=== PATIENT | male | born 1965 | race Caucasian/White ===

== ENCOUNTER 2017-06-13 06:18 | Day surgery (SDC) | payer MEDICARE, MEDICAID ==
[~2017-06-13] VITALS: Ht 188 cm; Wt 76.9 kg
[~2017-06-13 06:18] MED LIST: AMLO5TAB2 PO; ATOR40TA PO; CALC667C5 PO; CLON-529 PO; ESOM20CA PO; FOLI1TAB16 PO; FOLI1TAB34 PO; LABE200T PO; LOSA50TA3 PO; MUPI22OI30 TP
[2017-06-13 06:33] VITALS: BP 165/88
[2017-06-13] MEDS ORDERED: CINA30TA PO (06:44)
[2017-06-13] MEDS ORDERED: normal saline 1000ml 1,000 ML IV SCH (06:55)
[2017-06-13 07:15] LABS: ANION GAP 19 (8-16); BLOOD UREA NITROGEN 60 MG/DL (7-18); BUN/CREATININE RATIO 3.7 (5.4-32.0); CALCIUM 8.9 MG/DL (8.5-10.1); CHLORIDE 97 MMOL/L (99-107); GLUCOSE 92 MG/DL (70-104); PHOSPHORUS 7.3 MG/DL (2.3-4.5); POTASSIUM 5.2 MMOL/L (3.5-5.1); SODIUM 142 MMOL/L (135-145); TOTAL CARBON DIOXIDE 26.5 MMOL/L (24-32); eGFR 3 ML/MIN
[2017-06-13 08:02] LABS: BASOPHILS # (AUTO) 0.1 X10'3 (0-0.2); BASOPHILS % (AUTO) 0.6 % (0-1); EOSINOPHILS # (AUTO) 0.9 X10'3 (0-0.9); EOSINOPHILS % (AUTO) 7.6 % (0-6); HEMATOCRIT 37.5 % (42.0-52.0); HEMOGLOBIN 12.8 g/dl (14.0-17.9); LYMPHOCYTES # (AUTO) 1.3 X10'3 (1.1-4.8); LYMPHOCYTES % (AUTO) 11.5 % (21-51); MEAN CORPUSCULAR HEMOGLOBIN 32.7 PG (27.0-31.0); MONOCYTES # (AUTO) 1.1 X10'3 (0-0.9); MONOCYTES % (AUTO) 9.2 % (2-12); NEUTROPHILS # (AUTO) 8.2 X10'3 (1.8-7.7); NEUTROPHILS % (AUTO) 71.1 % (42-75); PLATELET COUNT 247 X10'3 (140-440); RED CELL DISTRIBUTION WIDTH 16.7 % (11.5-14.5); WHITE BLOOD COUNT 11.6 X10'3 (4.5-11.0)
[2017-06-13] MEDS ORDERED: sodium polystyrene sulfonate 15gm/60ml oral suspension PO ONE (08:10)
== END 2017-06-13 08:23 | disposition home or self-care (01) ==
LOC: SSTAY O 06:18
PROVIDERS: ATTEND Radiology Diagnostic Radiology
DX: T82.838A Hemorrhage due to vascular prosthetic devices, implants and grafts, initial encounter (principal); Y92.89 Other specified places as the place of occurrence of the external cause; Z53.8 Procedure and treatment not carried out for other reasons
CPT/HCPCS: 36415; 80069; 85025; J7030

== ENCOUNTER 2017-06-14 06:57 | Day surgery (SDC) | payer MEDICARE, MEDICAID ==
[~2017-06-14] VITALS: Ht 188 cm; Wt 81.6 kg
[2017-06-14] VITALS (7 sets, daily range): BP systolic 170–183; BP diastolic 75–81
[~2017-06-14 06:57] MED LIST changes: -AMLO5TAB2 PO; +CINA30TA PO; -CLON-529 PO; -LOSA50TA3 PO; -MUPI22OI30 TP
[2017-06-14] MEDS ORDERED: normal saline 1000ml 1,000 ML IV PRN (07:25)
[2017-06-14] MEDS ORDERED: tPA-cathflo 2 MG/2 ml IV flush ICATH ONE (07:30)
[2017-06-14] MEDS ORDERED: iohexol 300mg/ml 100ml inj. ONE (07:32)
[2017-06-14] MEDS ORDERED: LIDOcaine 1%/PF (10mg/ml) 5ml vial ONE (07:32)
[2017-06-14 07:33] LABS: BASOPHILS # (AUTO) 0.1 X10'3 (0-0.2); BASOPHILS % (AUTO) 0.9 % (0-1); EOSINOPHILS # (AUTO) 0.8 X10'3 (0-0.9); EOSINOPHILS % (AUTO) 7.6 % (0-6); HEMATOCRIT 35.8 % (42.0-52.0); LYMPHOCYTES # (AUTO) 1.6 X10'3 (1.1-4.8); LYMPHOCYTES % (AUTO) 15.7 % (21-51); MEAN CORPUSCULAR HEMOGLOBIN 32.3 PG (27.0-31.0); MEAN CORPUSCULAR HGB CONC 33.6 % (33.0-36.5); MEAN CORPUSCULAR VOLUME 96.2 FL (78-98); MEAN PLATELET VOLUME 7.2 FL (7.4-10.4); MONOCYTES # (AUTO) 1.1 X10'3 (0-0.9); MONOCYTES % (AUTO) 10.8 % (2-12); NEUTROPHILS # (AUTO) 6.7 X10'3 (1.8-7.7); PLATELET COUNT 239 X10'3 (140-440); RED BLOOD COUNT 3.72 X10'6 (4.70-6.10); RED CELL DISTRIBUTION WIDTH 16.5 % (11.5-14.5); WHITE BLOOD COUNT 10.3 X10'3 (4.5-11.0)
[2017-06-14 07:44] LABS: ALBUMIN 3.6 G/DL (3.4-5.0); ANION GAP 19 (8-16); BLOOD UREA NITROGEN 77 MG/DL (7-18); BUN/CREATININE RATIO 4.4 (5.4-32.0); CALCIUM 8.3 MG/DL (8.5-10.1); CHLORIDE 99 MMOL/L (99-107); CREATININE 17.53 MG/DL (0.60-1.10); GLUCOSE 107 MG/DL (70-104); POTASSIUM 5.5 MMOL/L (3.5-5.1); PROTHROMBIN TIME 9.9 SECONDS (9.0-12.0); SODIUM 142 MMOL/L (135-145); eGFR 3 ML/MIN
[2017-06-14] MEDS ORDERED: midazolam 2 mg/2 ml injection IV PRN (08:00)
[2017-06-14] MEDS ORDERED: LIDOcaine 1%/PF (10mg/ml) 5ml vial SQ ONE (08:00)
[2017-06-14] MEDS ORDERED: fentaNYL/PF 50MCG/1 ML 2ML syringe IV PRN (08:00)
[2017-06-14] MEDS ORDERED: heparin 1,000 UNITS/NS 500ml 500 ML ONE ×2 (08:01→09:27)
[2017-06-14] MEDS ORDERED: midazolam 2 mg/2 ml injection ONE ×2 (08:26→09:02)
[2017-06-14] MEDS ORDERED: fentaNYL/PF 50MCG/1 ML 2ML syringe ONE ×3 (08:27→09:34)
[2017-06-14] MEDS ORDERED: iohexol 300 MG/1 ML 50ml polymer ONE (09:29)
[2017-06-14] MEDS ORDERED: ondansetron/PF 4mg/2ml inj ONE (10:12)
[2017-06-14] MEDS ORDERED: ondansetron/PF 4mg/2ml inj IV ONE (10:20)
== END 2017-06-14 11:50 | disposition home or self-care (01) ==
LOC: SSTAY O 06:57
PROVIDERS: ATTEND Radiology Diagnostic Radiology
DX: T82.868A Thrombosis due to vascular prosthetic devices, implants and grafts, initial encounter (principal); I12.0 Hypertensive chronic kidney disease with stage 5 chronic kidney disease or end stage renal disease; N18.6 End stage renal disease; E78.5 Hyperlipidemia, unspecified; K21.9 Gastro-esophageal reflux disease without esophagitis; Z87.891 Personal history of nicotine dependence; Z79.899 Other long term (current) drug therapy; Z82.49 Family history of ischemic heart disease and other diseases of the circulatory system; Z99.2 Dependence on renal dialysis; Y83.2 Surgical operation with anastomosis, bypass or graft as the cause of abnormal reaction of the patient, or of later complication, without mention of misadventure at the time of the procedure; Y92.9 Unspecified place or not applicable
CPT/HCPCS: 36415; 36905; 80048; 85025; 85610; 99152; 99153; C1725; C1757; C1769; C1894; J1644; J2001; J2250; J2405; J2997; J3010; J7030; Q9967

== ENCOUNTER 2018-02-25 04:22 | Inpatient (IN) | payer MEDICARE, MEDICAID ==
[~2018-02-25] VITALS: Ht 185.4 cm; Wt 82.7 kg
[2018-02-25] VITALS (22 sets, daily range): BP systolic 138–204; BP diastolic 55–90
[~2018-02-25 04:22] MED LIST changes: -LABE200T PO; +LABE200T5 PO; +nitroGLYCERIN-Tridil 50MG/D5W 250 ML IV SCH
[2018-02-25 05:06] LABS: ABG BASE EXCESS 8.5 mmol/L (-2.0-3.0); ABG HCO3 33.5 mmol/L (22.0-26.0); ABG OXYGEN SATURATION 93.1 % (95-98); ABG PCO2 (T) 48.6 mmHg (35.0-48.0); ABG PH (T) 7.454 (7.350-7.450); ABG PO2 (T) 66.7 mmHg (83-108); FCOHb 2.1 % (0.5-1.5); FMetHb 0.3 % (0.3-1.12); FO2Hb 90.9 % (94-100); PATIENT TEMPERATURE 36.6; RESPIRATORY RATE 12 b/min; RESPIRATORY RATE (OBSERVED) 27 b/min; TOTAL HEMOGLOBIN 8.7 G/dl (14.0-18.0)
[2018-02-25] MEDS ORDERED: CLON-529 PO (05:20)
[2018-02-25] MEDS ORDERED: LOSA25TA96 PO (05:20)
[2018-02-25] MEDS ORDERED: ipratropium/albuterol 3ml nebule NEB PRN (05:30)
[2018-02-25] MEDS ORDERED: acetaminophen 325mg tablet PO PRN ×2 (05:30)
[2018-02-25] MEDS ORDERED: ondansetron/PF 4mg/2ml inj IV PRN (05:30)
[2018-02-25] MEDS ORDERED: acetaminophen 650mg rectal suppository RC PRN (05:30)
[2018-02-25] MEDS ORDERED: morphine 2 MG/ML inj. syringe IV PRN (05:30)
[2018-02-25] MEDS ORDERED: HYDROcodone/acetaminophen 5mg/325mg tablet PO PRN (05:30)
[2018-02-25 05:46] LABS: BASOPHILS % (AUTO) 0.1 % (0-1); EOSINOPHILS # (AUTO) 0.4 X10'3 (0-0.9); EOSINOPHILS % (AUTO) 1.6 % (0-6); HEMATOCRIT 25.7 % (42.0-52.0); HEMOGLOBIN 8.6 g/dl (14.0-17.9); LYMPHOCYTES # (AUTO) 0.8 X10'3 (1.1-4.8); LYMPHOCYTES % (AUTO) 3.1 % (21-51); MEAN CORPUSCULAR HEMOGLOBIN 30.9 PG (27.0-31.0); MEAN CORPUSCULAR HGB CONC 33.3 % (33.0-36.5); MEAN CORPUSCULAR VOLUME 92.8 FL (78-98); MEAN PLATELET VOLUME 8.2 FL (7.4-10.4); MONOCYTES # (AUTO) 0.8 X10'3 (0-0.9); MONOCYTES % (AUTO) 3.1 % (2-12); NEUTROPHILS # (AUTO) 23.2 X10'3 (1.8-7.7); NEUTROPHILS % (AUTO) 92.1 % (42-75); PLATELET COUNT 257 X10'3 (140-440); RED BLOOD COUNT 2.77 X10'6 (4.70-6.10); RED CELL DISTRIBUTION WIDTH 14.9 % (11.5-14.5)
[2018-02-25 05:48] LABS: WHITE BLOOD COUNT 25.2 X10'3 (4.5-11.0)
[2018-02-25 06:00] LABS: ALANINE AMINOTRANSFERASE 21 U/L (12-78); ALBUMIN 3.1 G/DL (3.4-5.0); ALBUMIN/GLOBULIN RATIO 0.9 (1.1-1.5); ALKALINE PHOSPHATASE 72 IU/L (46-116); ANION GAP 9 (8-16); ASPARTATE AMINO TRANSFERASE 11 U/L (10-37); BILIRUBIN,TOTAL 0.5 MG/DL (0.1-1.0); BLOOD UREA NITROGEN 27 MG/DL (7-18); BUN/CREATININE RATIO 3.2 (5.4-32.0); CALCIUM 8.3 MG/DL (8.5-10.1); CHLORIDE 96 MMOL/L (99-107); CREATININE 8.57 MG/DL (0.60-1.10); GLUCOSE 145 MG/DL (70-104); PHOSPHORUS 5.3 MG/DL (2.3-4.5); SODIUM 139 MMOL/L (135-145); TOTAL CARBON DIOXIDE 33.6 MMOL/L (24-32); TOTAL PROTEIN 6.6 G/DL (6.4-8.2); eGFR 7 ML/MIN
[2018-02-25 06:24] LABS: PLATELET ESTIMATE NORMAL; TOTAL CELLS COUNTED 100
[2018-02-25] MEDS: piperacillin-tazo 2.25gm/50ml 50 ML IV SCH ×3 (06:29→20:26)
[2018-02-25] MEDS: docusate sod 100mg capsule PO SCH ×2 (07:39→20:00)
[2018-02-25] MEDS: labetalol 100mg tablet PO SCH ×3 (07:39→20:27)
[2018-02-25] MEDS: pantoprazole 40mg Tablet.DR PO SCH (07:39)
[2018-02-25] MEDS: atorvastatin 20mg tablet PO SCH (07:39)
[2018-02-25] MEDS: losartan 50mg tablet PO SCH (07:39)
[2018-02-25] MEDS: heparin, porcine 5000 units/ml vial SQ SCH ×2 (07:40→20:00)
[2018-02-25] MEDS ORDERED: famotidine 20mg tablet PO SCH (08:00)
[2018-02-25] MEDS: cinacalcet 30mg tablet PO SCH (08:00)
[2018-02-25] MEDS ORDERED: cloNIDine 0.1 mg tablet PO SCH (08:00)
[2018-02-25] MEDS ORDERED: normal saline 1000ml 250 ML IV PRN (09:14)
[2018-02-25] MEDS ORDERED: vancomycin/NS 1 GM ADD-VANTAGE 250 ML IV PRN (09:15)
[2018-02-25] MEDS ORDERED: heparin 1,000 units/ml 10ml inj IV ONE (09:15)
[2018-02-25] MEDS ORDERED: LIDOcaine 1% (10mg/ml) 2ml vial SQ ONE (09:15)
[2018-02-25] MEDS ORDERED: epoetin 20,000 units/ml inj IV ONE (09:15)
[2018-02-25] MEDS ORDERED: vancomycin/NS 1 GM ADD-VANTAGE 250 ML IV ONE (09:30)
[2018-02-25] MEDS: nitroGLYCERIN-Tridil 50MG/D5W 250 ML IV PRN ×3 (10:12→22:59)
[2018-02-25] MEDS: folic acid 1mg tablet PO SCH (15:38)
[2018-02-25] MEDS: folic acid/vitamin B complex w/vitamin C 0.8mg tablet PO SCH (15:39)
[2018-02-25] MEDS: lactobacillus rhamnosus 10,000 MMU CELLS/CAPSULE PO SCH (20:26)
[2018-02-25] MEDS: cloNIDine 0.1 mg tablet PO SCH (20:27)
[2018-02-26] VITALS (17 sets, daily range): BP systolic 147–183; BP diastolic 61–86
[2018-02-26] MEDS: piperacillin-tazo 2.25gm/50ml 50 ML IV SCH ×3 (02:06→14:28)
[2018-02-26] MEDS ORDERED: VANCOMYCIN LEVEL IV SCH (03:00)
[2018-02-26 04:36] LABS: BASOPHILS # (AUTO) 0.1 X10'3 (0-0.2); BASOPHILS % (AUTO) 0.5 % (0-1); EOSINOPHILS # (AUTO) 0.6 X10'3 (0-0.9); EOSINOPHILS % (AUTO) 5.2 % (0-6); HEMOGLOBIN 7.1 g/dl (14.0-17.9); LYMPHOCYTES # (AUTO) 1.5 X10'3 (1.1-4.8); LYMPHOCYTES % (AUTO) 12.6 % (21-51); MEAN CORPUSCULAR HEMOGLOBIN 30.6 PG (27.0-31.0); MEAN CORPUSCULAR HGB CONC 33.3 % (33.0-36.5); MEAN CORPUSCULAR VOLUME 91.7 FL (78-98); MEAN PLATELET VOLUME 8.2 FL (7.4-10.4); MONOCYTES # (AUTO) 1.3 X10'3 (0-0.9); MONOCYTES % (AUTO) 10.9 % (2-12); NEUTROPHILS # (AUTO) 8.4 X10'3 (1.8-7.7); NEUTROPHILS % (AUTO) 70.8 % (42-75); PLATELET COUNT 215 X10'3 (140-440); RED BLOOD COUNT 2.31 X10'6 (4.70-6.10); RED CELL DISTRIBUTION WIDTH 14.6 % (11.5-14.5); WHITE BLOOD COUNT 11.9 X10'3 (4.5-11.0)
[2018-02-26 04:44] LABS: ALANINE AMINOTRANSFERASE 17 U/L (12-78); ALBUMIN 2.8 G/DL (3.4-5.0); ALBUMIN/GLOBULIN RATIO 0.9 (1.1-1.5); ALKALINE PHOSPHATASE 55 IU/L (46-116); ANION GAP 9 (8-16); ASPARTATE AMINO TRANSFERASE 9 U/L (10-37); BILIRUBIN,TOTAL 0.7 MG/DL (0.1-1.0); BLOOD UREA NITROGEN 19 MG/DL (7-18); CALCIUM 8.4 MG/DL (8.5-10.1); CHLORIDE 100 MMOL/L (99-107); CREATININE 6.36 MG/DL (0.60-1.10); GLUCOSE 99 MG/DL (70-104); MAGNESIUM 1.9 MG/DL (1.5-2.4); PHOSPHORUS 4.5 MG/DL (2.3-4.5); POTASSIUM 3.9 MMOL/L (3.5-5.1); SODIUM 139 MMOL/L (135-145); TOTAL CARBON DIOXIDE 30.5 MMOL/L (24-32); TOTAL PROTEIN 5.9 G/DL (6.4-8.2); VANCOMYCIN,RANDOM 8.9 UG/ML; eGFR 9 ML/MIN
[2018-02-26 04:51] LABS: HEMATOCRIT 21.2 % (42.0-52.0)
[2018-02-26] MEDS: losartan 50mg tablet PO SCH (08:01)
[2018-02-26] MEDS: heparin, porcine 5000 units/ml vial SQ SCH (08:01)
[2018-02-26] MEDS: cinacalcet 30mg tablet PO SCH (08:02)
[2018-02-26] MEDS: docusate sod 100mg capsule PO SCH (08:02)
[2018-02-26] MEDS: atorvastatin 20mg tablet PO SCH (08:02)
[2018-02-26] MEDS: folic acid/vitamin B complex w/vitamin C 0.8mg tablet PO SCH (08:02)
[2018-02-26] MEDS: lactobacillus rhamnosus 10,000 MMU CELLS/CAPSULE PO SCH (08:02)
[2018-02-26] MEDS: pantoprazole 40mg Tablet.DR PO SCH (08:02)
[2018-02-26] MEDS: folic acid 1mg tablet PO SCH (08:03)
[2018-02-26] MEDS: cloNIDine 0.1 mg tablet PO SCH (08:03)
[2018-02-26] MEDS: labetalol 100mg tablet PO SCH ×2 (08:14→14:27)
[2018-02-26] MEDS ORDERED: vancomycin/NS 1 GM ADD-VANTAGE 250 ML IV ONE (09:00)
[2018-02-26 11:02] LABS: FERRITIN 949 NG/ML (26-388)
[2018-02-26 11:28] LABS: % IRON SATURATION 31 % (11-46); IRON 48 UG/DL (53-167); TOTAL IRON BINDING CAPACITY 157 UG/DL (259-388)
[2018-02-26 12:06] LABS: HEMATOCRIT 23.6 % (42.0-52.0); HEMOGLOBIN 7.9 g/dl (14.0-17.9); MEAN CORPUSCULAR HEMOGLOBIN 31.2 PG (27.0-31.0); MEAN CORPUSCULAR HGB CONC 33.6 % (33.0-36.5); MEAN CORPUSCULAR VOLUME 92.8 FL (78-98); MEAN PLATELET VOLUME 8.1 FL (7.4-10.4); PLATELET COUNT 242 X10'3 (140-440); RED BLOOD COUNT 2.54 X10'6 (4.70-6.10); RED CELL DISTRIBUTION WIDTH 14.8 % (11.5-14.5); WHITE BLOOD COUNT 10.9 X10'3 (4.5-11.0)
[2018-02-26] MEDS ORDERED: CLON0.1T20 PO (15:30)
[2018-02-26] MEDS ORDERED: FOLI0.8T22 PO (15:30)
[2018-02-26] MEDS ORDERED: FOLI1TAB16 PO (15:30)
[2018-02-26] MEDS ORDERED: LABE100T5 PO (15:30)
[2018-02-26 16:46] LABS: OCCULT BLOOD STOOL NEGATIVE (Neg)
[2018-02-27] MEDS ORDERED: lactulose 20gm/30ml cup PO PRN (05:30)
== END 2018-02-26 16:30 | disposition home or self-care (01) | DRG 871 ==
LOC: ER 04:22 → ED HOLD 05:30 → CICU 2S 07:19
PROVIDERS: ATTEND Internal Medicine Critical Care Medicine
PROC: 5A09357 Assistance with Respiratory Ventilation, Less than 24 Consecutive Hours, Continuous Positive Airway Pressure (ICD-10-PCS; principal; 2018-02-25)
PROC: 5A1D70Z Performance of Urinary Filtration, Intermittent, Less than 6 Hours Per Day (ICD-10-PCS; 2018-02-25)
DX: A41.9 Sepsis, unspecified organism (principal); I50.33 Acute on chronic diastolic (congestive) heart failure; N18.6 End stage renal disease; J18.1 Lobar pneumonia, unspecified organism; J96.01 Acute respiratory failure with hypoxia; J96.02 Acute respiratory failure with hypercapnia; I13.2 Hypertensive heart and chronic kidney disease with heart failure and with stage 5 chronic kidney disease, or end stage renal disease; I16.1 Hypertensive emergency; J44.0 Chronic obstructive pulmonary disease with (acute) lower respiratory infection; D64.9 Anemia, unspecified; E78.5 Hyperlipidemia, unspecified; K21.9 Gastro-esophageal reflux disease without esophagitis; Z82.49 Family history of ischemic heart disease and other diseases of the circulatory system; Z99.2 Dependence on renal dialysis; Z79.899 Other long term (current) drug therapy
CPT/HCPCS: 36415; 36600; 71045; 80053; 80202; 82272; 82728; 82803; 82948; 83540; 83550; 83605; 83735; 83880; 84100; 84145; 84484; 85018; 85025; 85027; 86885; 86900; 86901; 87040; 87070; 93005; 93306; 94660; 94760; 96365; 97161; 99285; G0257; G0378; J0885; J1644; J2543; J3370; J3490

== ENCOUNTER 2018-04-24 07:27 | Day surgery (SDC) | payer MEDICARE, MEDICAID ==
[2018-04-24] VITALS (7 sets, daily range): BP systolic 197–214; BP diastolic 84–144
[~2018-04-24] VITALS: Ht 188 cm; Wt 79.0 kg
[~2018-04-24 07:27] MED LIST changes: -CALC667C5 PO; +CLON0.1T20 PO; +FOLI0.8T22 PO; -FOLI1TAB34 PO; +LABE100T5 PO; -LABE200T5 PO; +LOSA25TA96 PO; -nitroGLYCERIN-Tridil 50MG/D5W 250 ML IV SCH
[2018-04-24] MEDS ORDERED: normal saline 1000ml 1,000 ML IV SCH ×2 (07:50→09:03)
[2018-04-24] MEDS ORDERED: FOLI1TAB16 PO (08:19)
[2018-04-24] MEDS ORDERED: FOLI0.8T7 PO (08:19)
[2018-04-24] MEDS ORDERED: LABE100T5 PO (08:19)
[2018-04-24] MEDS ORDERED: OMEP20CA10 PO (08:21)
[2018-04-24] MEDS ORDERED: CLON-527 PO (08:21)
[2018-04-24] MEDS ORDERED: NIFE60TA18 PO (08:21)
[2018-04-24 08:33] LABS: ALBUMIN 3.8 G/DL (3.4-5.0); ANION GAP 12 (8-16); BLOOD UREA NITROGEN 25 MG/DL (7-18); BUN/CREATININE RATIO 3.3 (5.4-32.0); CALCIUM 8.9 MG/DL (8.5-10.1); CHLORIDE 99 MMOL/L (99-107); CREATININE 7.69 MG/DL (0.60-1.10); GLUCOSE 90 MG/DL (70-104); POTASSIUM 4.4 MMOL/L (3.5-5.1); SODIUM 141 MMOL/L (135-145); TOTAL CARBON DIOXIDE 30.3 MMOL/L (24-32); eGFR 7 ML/MIN
[2018-04-24 08:56] LABS: BASOPHILS # (AUTO) 0.1 X10'3 (0-0.2); BASOPHILS % (AUTO) 0.8 % (0-1); EOSINOPHILS % (AUTO) 12.4 % (0-6); HEMATOCRIT 39.3 % (42.0-52.0); HEMOGLOBIN 12.7 g/dl (14.0-17.9); LYMPHOCYTES # (AUTO) 1.2 X10'3 (1.1-4.8); LYMPHOCYTES % (AUTO) 14.8 % (21-51); MEAN CORPUSCULAR HEMOGLOBIN 29.6 PG (27.0-31.0); MEAN CORPUSCULAR HGB CONC 32.3 % (33.0-36.5); MEAN CORPUSCULAR VOLUME 91.8 FL (78-98); MEAN PLATELET VOLUME 8.8 FL (7.4-10.4); MONOCYTES # (AUTO) 0.8 X10'3 (0-0.9); MONOCYTES % (AUTO) 9.6 % (2-12); NEUTROPHILS % (AUTO) 62.4 % (42-75); PLATELET COUNT 192 X10'3 (140-440); RED BLOOD COUNT 4.29 X10'6 (4.70-6.10); RED CELL DISTRIBUTION WIDTH 16.9 % (11.5-14.5); WHITE BLOOD COUNT 7.9 X10'3 (4.5-11.0)
[2018-04-24 09:00] LABS: INR 1.1 INR; PROTHROMBIN TIME 10.4 SECONDS (9.0-12.0)
[2018-04-24] MEDS ORDERED: heparin 1,000 UNITS/NS 500ml 500 ML ICATH ONE (09:05)
[2018-04-24] MEDS ORDERED: fentaNYL/PF 50MCG/1 ML 2ML syringe IV PRN (09:05)
[2018-04-24] MEDS ORDERED: LIDOcaine 1%/PF 5ML 10 MG/ML VIAL SQ ONE (09:05)
[2018-04-24] MEDS ORDERED: midazolam 2 mg/2 ml injection IV PRN (09:05)
[2018-04-24] MEDS ORDERED: LIDOcaine 1%/PF 5ML 10 MG/ML VIAL ONE (09:12)
[2018-04-24] MEDS ORDERED: iohexol 300mg/ml 100ml inj. ONE (09:12)
[2018-04-24] MEDS ORDERED: midazolam 2 mg/2 ml injection ONE ×2 (09:35→09:58)
[2018-04-24] MEDS ORDERED: fentaNYL/PF 50MCG/1 ML 2ML syringe ONE ×2 (09:36→09:58)
[2018-04-24] MEDS ORDERED: heparin 1,000 UNITS/NS 500ml 500 ML ONE (09:36)
[2018-04-24] MEDS ORDERED: hydrALAZINE 20mg/ml inj. IV ONE ×2 (10:00→10:15)
== END 2018-04-24 11:23 | disposition home or self-care (01) ==
LOC: SSTAY O 07:27
PROVIDERS: ATTEND Radiology Vascular & Interventional Radiology
DX: T82.858A Stenosis of other vascular prosthetic devices, implants and grafts, initial encounter (principal); Y83.8 Other surgical procedures as the cause of abnormal reaction of the patient, or of later complication, without mention of misadventure at the time of the procedure; Y92.89 Other specified places as the place of occurrence of the external cause; I12.0 Hypertensive chronic kidney disease with stage 5 chronic kidney disease or end stage renal disease; N18.6 End stage renal disease; E78.5 Hyperlipidemia, unspecified; K21.9 Gastro-esophageal reflux disease without esophagitis; F12.90 Cannabis use, unspecified, uncomplicated; G62.89 Other specified polyneuropathies; Z87.2 Personal history of diseases of the skin and subcutaneous tissue; Z99.2 Dependence on renal dialysis; Z86.69 Personal history of other diseases of the nervous system and sense organs; Z87.891 Personal history of nicotine dependence; Z98.890 Other specified postprocedural states; Z79.899 Other long term (current) drug therapy; Z82.49 Family history of ischemic heart disease and other diseases of the circulatory system
CPT/HCPCS: 36415; 36901; 80048; 85025; 85610; 99152; 99153; J0360; J1644; J2001; J2250; J3010; J7030; Q9967; C1769; C1894

== ENCOUNTER 2018-08-12 09:04 | Day surgery (SDC) | payer MEDICARE, MEDICAID ==
[2018-08-12] VITALS (7 sets, daily range): BP systolic 165–200; BP diastolic 74–108
[~2018-08-12] VITALS: Ht 188 cm; Wt 81.1 kg
[~2018-08-12 09:04] MED LIST changes: +CLON-527 PO; -CLON0.1T20 PO; -ESOM20CA PO; -FOLI0.8T22 PO; +FOLI0.8T7 PO; +NIFE60TA18 PO; +OMEP20CA10 PO
[2018-08-12] MEDS ORDERED: normal saline 1000ml 1,000 ML IV SCH (09:25)
[2018-08-12] MEDS ORDERED: CLON0.3T PO (09:29)
[2018-08-12] MEDS ORDERED: iohexol 300mg/ml 100ml inj. ONE (09:44)
[2018-08-12] MEDS ORDERED: LIDOcaine 1%/PF 5ML 10 MG/ML VIAL ONE ×2 (09:44→13:22)
[2018-08-12 09:57] LABS: BASOPHILS # (AUTO) 0.1 X10'3 (0-0.2); BASOPHILS % (AUTO) 1.4 % (0-1); EOSINOPHILS % (AUTO) 10.6 % (0-6); HEMATOCRIT 34.8 % (42.0-52.0); HEMOGLOBIN 11.3 g/dl (14.0-17.9); LYMPHOCYTES # (AUTO) 0.9 X10'3 (1.1-4.8); LYMPHOCYTES % (AUTO) 9.7 % (21-51); MEAN CORPUSCULAR HEMOGLOBIN 28.5 PG (27.0-31.0); MEAN CORPUSCULAR HGB CONC 32.5 g/dL (33.0-36.5); MEAN CORPUSCULAR VOLUME 87.8 FL (78-98); MEAN PLATELET VOLUME 7.9 FL (7.4-10.4); MONOCYTES # (AUTO) 0.6 X10'3 (0-0.9); MONOCYTES % (AUTO) 6.8 % (2-12); NEUTROPHILS # (AUTO) 6.6 X10'3 (1.8-7.7); NEUTROPHILS % (AUTO) 71.5 % (42-75); PLATELET COUNT 227 X10'3 (140-440); RED BLOOD COUNT 3.96 X10'6 (4.70-6.10); RED CELL DISTRIBUTION WIDTH 18.1 % (11.5-14.5); WHITE BLOOD COUNT 9.2 X10'3 (4.5-11.0)
[2018-08-12] MEDS ORDERED: heparin 1,000 UNITS/NS 500ml 500 ML ICATH ONE (10:05)
[2018-08-12] MEDS ORDERED: heparin 1,000 units/ml 10ml inj ICATH ONE (10:05)
[2018-08-12] MEDS ORDERED: LIDOcaine 1%/PF 5ML 10 MG/ML VIAL SQ ONE (10:05)
[2018-08-12] MEDS ORDERED: midazolam 2 mg/2 ml injection IV PRN (10:05)
[2018-08-12] MEDS ORDERED: fentaNYL/PF 50MCG/1 ML 2ML syringe IV PRN (10:05)
[2018-08-12 10:09] LABS: ALBUMIN 3.9 G/DL (3.4-5.0); ANION GAP 10 (8-16); BLOOD UREA NITROGEN 68 MG/DL (7-18); BUN/CREATININE RATIO 4.8 (5.4-32.0); CALCIUM 8.7 MG/DL (8.5-10.1); CHLORIDE 101 MMOL/L (99-107); CREATININE 14.13 MG/DL (0.60-1.10); GLUCOSE 99 MG/DL (70-104); SODIUM 139 MMOL/L (135-145); TOTAL CARBON DIOXIDE 27.6 MMOL/L (24-32); eGFR 4 ML/MIN
[2018-08-12 10:10] LABS: POTASSIUM 6.8 MMOL/L (3.5-5.1)
[2018-08-12] MEDS ORDERED: midazolam 2 mg/2 ml injection ONE ×2 (10:11→13:06)
[2018-08-12] MEDS ORDERED: fentaNYL/PF 50MCG/1 ML 2ML syringe ONE ×2 (10:12→13:06)
[2018-08-12] MEDS ORDERED: heparin 1,000 UNITS/NS 500ml 500 ML ONE (10:12)
[2018-08-12] MEDS ORDERED: sodium bicarbonate (8.4%) inj. 50 MEQ in normal saline 1000ml 1,000 ML IV SCH (10:25)
[2018-08-12] MEDS ORDERED: calcium chloride 100 MG/1 ML inj IV ONE (10:25)
[2018-08-12] MEDS ORDERED: albuterol 2.5 MG/3 ML nebule CONTNEB PRN (10:25)
[2018-08-12] MEDS ORDERED: dextrose 50%-water 50ml dispensing syringe IV ONE (10:25)
[2018-08-12] MEDS ORDERED: insulin regular, human 10 units/0.1 ml syringe IV ONE (10:25)
[2018-08-12] MEDS ORDERED: calcium chloride inj. 1,000 MG in normal saline 100ml IV soln 90 ML IV ONE (10:35)
[2018-08-12] MEDS ORDERED: sodium bicarbonate (8.4%) 1 mEq/ml syringe IV ONE (11:05)
--- NOTE | 2018-08-12 11:40 | NUR ---
waiting for RT to administer neb treatment as ordered. Medications administered by RN as ordered.
--- NOTE | 2018-08-12 11:51 | NUR ---
paged RT, to come administer medications
[2018-08-12] MEDS ORDERED: tPA-cathflo 2 MG/2 ml IV flush ONE (12:38)
[2018-08-12] MEDS ORDERED: heparin 1,000unit/ml 10ml vial 10 ML ONE (13:22)
[2018-08-12] MEDS ORDERED: ondansetron/PF 4mg/2ml inj ONE (14:12)
[2018-08-12] MEDS ORDERED: labetalol 100mg tablet PO SCH (14:57)
[2018-08-12] MEDS ORDERED: NIFEdipine XL 30mg tablet PO SCH (14:58)
== END 2018-08-12 15:25 | disposition home or self-care (01) ==
LOC: SSTAY O 09:04
PROVIDERS: ATTEND Radiology Diagnostic Radiology
DX: T82.868A Thrombosis due to vascular prosthetic devices, implants and grafts, initial encounter (principal); I12.0 Hypertensive chronic kidney disease with stage 5 chronic kidney disease or end stage renal disease; N18.6 End stage renal disease; Z79.899 Other long term (current) drug therapy; Y83.8 Other surgical procedures as the cause of abnormal reaction of the patient, or of later complication, without mention of misadventure at the time of the procedure; Z82.49 Family history of ischemic heart disease and other diseases of the circulatory system
CPT/HCPCS: 36415; 36558; 36901; 76937; 77001; 80048; 85025; 94640; 94760; 99152; 99153; J1644; J1815; J2001; J2250; J2405; J2997; J3010; J7030; Q9967; A9270; C1750; C1769; C1894

== ENCOUNTER 2018-10-16 06:30 | Day surgery (SDC) | payer MEDICARE, MEDICAID ==
[~2018-10-16] VITALS: Ht 188 cm; Wt 76.5 kg
[~2018-10-16 06:30] MED LIST changes: -CLON-527 PO; +CLON0.3T PO; -LOSA25TA96 PO; -OMEP20CA10 PO; +OMEP20CA11 PO
[2018-10-16] MEDS ORDERED: normal saline 1000ml 1,000 ML IV SCH (06:55)
[2018-10-16] MEDS ORDERED: LOSA100T57 PO (07:19)
[2018-10-16 07:22] VITALS: BP 173/67
[2018-10-16 07:27] LABS: BASOPHILS # (AUTO) 0.1 X10'3 (0-0.2); BASOPHILS % (AUTO) 1.1 % (0-1); EOSINOPHILS # (AUTO) 0.9 X10'3 (0-0.9); EOSINOPHILS % (AUTO) 12.1 % (0-6); HEMATOCRIT 30.1 % (42.0-52.0); LYMPHOCYTES % (AUTO) 12.6 % (21-51); MEAN CORPUSCULAR HGB CONC 33.4 g/dL (33.0-36.5); MEAN CORPUSCULAR VOLUME 86.8 FL (78-98); MEAN PLATELET VOLUME 8.6 FL (7.4-10.4); MONOCYTES # (AUTO) 0.8 X10'3 (0-0.9); NEUTROPHILS % (AUTO) 64.2 % (42-75); PLATELET COUNT 218 X10'3 (140-440); RED BLOOD COUNT 3.46 X10'6 (4.70-6.10); RED CELL DISTRIBUTION WIDTH 16.3 % (11.5-14.5); WHITE BLOOD COUNT 7.8 X10'3 (4.5-11.0)
[2018-10-16 07:43] LABS: ALBUMIN 3.5 G/DL (3.4-5.0); ANION GAP 6 (8-16); BLOOD UREA NITROGEN 23 MG/DL (7-18); BUN/CREATININE RATIO 3.6 (5.4-32.0); CALCIUM 9.1 MG/DL (8.5-10.1); CHLORIDE 103 MMOL/L (99-107); CREATININE 6.47 MG/DL (0.60-1.10); GLUCOSE 105 MG/DL (70-104); POTASSIUM 4.1 MMOL/L (3.5-5.1); SODIUM 140 MMOL/L (135-145); TOTAL CARBON DIOXIDE 31.5 MMOL/L (24-32); eGFR 9 ML/MIN
[2018-10-16] MEDS ORDERED: midazolam 2 mg/2 ml injection IV PRN (08:10)
[2018-10-16] MEDS ORDERED: fentaNYL/PF 50MCG/1 ML 2ML syringe IV PRN (08:10)
[2018-10-16] MEDS ORDERED: iohexol 300mg/ml 100ml inj. ONE (08:12)
[2018-10-16] MEDS ORDERED: LIDOcaine 1%/PF 5ML 10 MG/ML VIAL ONE (08:12)
[2018-10-16] MEDS ORDERED: heparin 1,000 UNITS/NS 500ml 500 ML ONE (08:12)
[2018-10-16] MEDS ORDERED: fentaNYL/PF 50MCG/1 ML 2ML syringe ONE (08:15)
[2018-10-16] MEDS ORDERED: midazolam 2 mg/2 ml injection ONE (08:15)
[2018-10-16 09:25] VITALS: BP 197/80
[2018-10-16 09:40] VITALS: BP 198/93
[2018-10-16 09:55] VITALS: BP 206/81
[2018-10-16 10:10] VITALS: BP 182/81
[2018-10-16 10:28] VITALS: BP 186/70
== END 2018-10-16 10:35 | disposition home or self-care (01) ==
LOC: SSTAY O 06:30
PROVIDERS: ATTEND Radiology Diagnostic Radiology
DX: Z03.89 Encounter for observation for other suspected diseases and conditions ruled out (principal); E11.22 Type 2 diabetes mellitus with diabetic chronic kidney disease; N18.9 Chronic kidney disease, unspecified; Z96.649 Presence of unspecified artificial hip joint; Z79.899 Other long term (current) drug therapy; Z82.49 Family history of ischemic heart disease and other diseases of the circulatory system
CPT/HCPCS: 36415; 36901; 80048; 85025; 85610; 99152; 99153; C1769; C1894; J1644; J2001; J2250; J3010; Q9967

== ENCOUNTER 2022-09-07 06:51 | Day surgery (SDC) | payer MEDICARE, MEDICAID ==
[~2022-09-07] VITALS: Ht 188 cm; Wt 69.4 kg
[~2022-09-07 06:51] MED LIST changes: -CINA30TA PO; -FOLI1TAB16 PO; +FOLI1TAB27 PO; -LABE100T5 PO; +LOSA100T58 PO; -OMEP20CA11 PO; +OMEP20CA15 PO
[2022-09-07] MEDS ORDERED: normal saline 1000ml 1,000 ML IV PRN (07:10)
[2022-09-07 07:40] VITALS: BP 154/73
[2022-09-07] MEDS ORDERED: PHO667C PO (07:48)
[2022-09-07] MEDS ORDERED: LABE100T8 PO (07:48)
[2022-09-07 07:53] LABS: BASOPHILS # (AUTO) 0.1 X10'3 (0-0.2); BASOPHILS % (AUTO) 0.9 % (0-1); EOSINOPHILS # (AUTO) 0.5 X10'3 (0-0.9); EOSINOPHILS % (AUTO) 4.1 % (0-6); HEMATOCRIT 39.8 % (42.0-52.0); HEMOGLOBIN 13.1 g/dl (14.0-17.9); LYMPHOCYTES # (AUTO) 1.2 X10'3 (1.1-4.8); LYMPHOCYTES % (AUTO) 10.3 % (21-51); MEAN CORPUSCULAR HEMOGLOBIN 31.1 PG (27.0-31.0); MEAN CORPUSCULAR HGB CONC 32.9 g/dL (33.0-36.5); MEAN CORPUSCULAR VOLUME 94.5 FL (78-98); MEAN PLATELET VOLUME 7.9 FL (7.4-10.4); MONOCYTES # (AUTO) 1.1 X10'3 (0-0.9); MONOCYTES % (AUTO) 9.7 % (2-12); NEUTROPHILS # (AUTO) 8.8 X10'3 (1.8-7.7); PLATELET COUNT 294 X10'3 (140-440); RED BLOOD COUNT 4.21 X10'6 (4.70-6.10); RED CELL DISTRIBUTION WIDTH 18.1 % (11.5-14.5); WHITE BLOOD COUNT 11.8 X10'3 (4.5-11.0)
[2022-09-07] MEDS ORDERED: tPA-cathflo 2 MG/2 ml IV flush ONE ×2 (08:07→10:41)
[2022-09-07 08:08] LABS: ALBUMIN 3.7 G/DL (3.4-5.0); ANION GAP 22 (8-16); BLOOD UREA NITROGEN 65 MG/DL (7-18); BUN/CREATININE RATIO 5.5 (10.0-20.0); CALCIUM 8.3 MG/DL (8.5-10.1); CHLORIDE 95 MMOL/L (99-107); GLUCOSE 98 MG/DL (70-104); POTASSIUM 4.6 MMOL/L (3.5-5.1); SODIUM 140 MMOL/L (135-145); TOTAL CARBON DIOXIDE 23.5 MMOL/L (24-32); eGFR 4 ML/MIN
[2022-09-07 09:26] LABS: ANISOCYTOSIS 2+; PLATELET ESTIMATE NORMAL; TOTAL CELLS COUNTED 100
[2022-09-07 09:28] LABS: ELLIPTOCYTES FEW
[2022-09-07 09:34] LABS: HYPERSEGMENTED NEUTROPHILS 1+
[2022-09-07] MEDS ORDERED: midazolam 1 mg/ML 2ml injection ONE ×3 (09:59→11:02)
[2022-09-07] MEDS ORDERED: LIDOcaine 1% 30ml preserv. free vial ONE (09:59)
[2022-09-07] MEDS ORDERED: fentaNYL/PF 50MCG/1 ML 2ML syringe ONE ×3 (09:59→11:02)
[2022-09-07] MEDS ORDERED: iohexol 350MG/ML 100ml bottle IV ONE ×2 (09:59→10:25)
[2022-09-07] MEDS ORDERED: heparin 1,000 UNITS/NS 500ml 500 ML ONE (10:01)
[2022-09-07] MEDS ORDERED: iohexol 350 MG/ML 50ML vial IV ONE (10:26)
[2022-09-07] MEDS ORDERED: heparin 1,000unit/ml 10ml vial 10 ML ONE (10:35)
[2022-09-07] MEDS ORDERED: proCHLORperazine 10 MG/2 ml inj ONE (11:01)
[2022-09-07 11:30] VITALS: BP 165/79
--- NOTE | 2022-09-07 11:35 | NUR ---
Lt arm fistula site CDI-bruit thrill palpable
[2022-09-07 11:45] VITALS: BP 166/79
[2022-09-07 12:00] VITALS: BP 162/68
[2022-09-07 12:15] VITALS: BP 156/73
== END 2022-09-07 12:30 | disposition home or self-care (01) ==
LOC: SSTAY O 06:51
PROVIDERS: ATTEND Radiology Vascular & Interventional Radiology
DX: T82.868A Thrombosis due to vascular prosthetic devices, implants and grafts, initial encounter (principal); I12.0 Hypertensive chronic kidney disease with stage 5 chronic kidney disease or end stage renal disease; N18.6 End stage renal disease; F12.90 Cannabis use, unspecified, uncomplicated; Z79.899 Other long term (current) drug therapy; Z82.49 Family history of ischemic heart disease and other diseases of the circulatory system; Y83.2 Surgical operation with anastomosis, bypass or graft as the cause of abnormal reaction of the patient, or of later complication, without mention of misadventure at the time of the procedure; Y92.89 Other specified places as the place of occurrence of the external cause
CPT/HCPCS: 36415; 36905; 80048; 85025; 85610; 99152; 99153; C1725; C1769; J0780; J1644; J2250; J2997; J3010; J3490; J7030; Q9967; 85007; A6258; A6402; A6449; C1726; C1757; C1894

== ENCOUNTER 2022-09-12 07:39 | Day surgery (SDC) | payer MEDICARE, MEDICAID ==
[~2022-09-12] VITALS: Ht 188 cm; Wt 71.2 kg
[~2022-09-12 07:39] MED LIST changes: +LABE100T8 PO; +PHO667C PO
[2022-09-12 08:09] VITALS: BP 150/51
[2022-09-12] MEDS ORDERED: normal saline 1000ml 1,000 ML IV PRN (08:10)
[2022-09-12 08:45] LABS: BASOPHILS # (AUTO) 0.2 X10'3 (0-0.2); BASOPHILS % (AUTO) 1.3 % (0-1); EOSINOPHILS # (AUTO) 0.5 X10'3 (0-0.9); EOSINOPHILS % (AUTO) 3.6 % (0-6); HEMATOCRIT 39.2 % (42.0-52.0); HEMOGLOBIN 12.8 g/dl (14.0-17.9); LYMPHOCYTES % (AUTO) 7.9 % (21-51); MEAN CORPUSCULAR HEMOGLOBIN 30.6 PG (27.0-31.0); MEAN CORPUSCULAR HGB CONC 32.6 g/dL (33.0-36.5); MEAN CORPUSCULAR VOLUME 93.8 FL (78-98); MEAN PLATELET VOLUME 7.7 FL (7.4-10.4); MONOCYTES # (AUTO) 1.1 X10'3 (0-0.9); MONOCYTES % (AUTO) 8.2 % (2-12); NEUTROPHILS # (AUTO) 10.3 X10'3 (1.8-7.7); PLATELET COUNT 263 X10'3 (140-440); RED BLOOD COUNT 4.18 X10'6 (4.70-6.10); RED CELL DISTRIBUTION WIDTH 18.3 % (11.5-14.5)
[2022-09-12 08:57] LABS: ALBUMIN 3.9 G/DL (3.4-5.0); ANION GAP 21 (8-16); BLOOD UREA NITROGEN 68 MG/DL (7-18); BUN/CREATININE RATIO 5.4 (10.0-20.0); CHLORIDE 96 MMOL/L (99-107); CREATININE 12.68 MG/DL (0.60-1.10); GLUCOSE 101 MG/DL (70-104); POTASSIUM 4.8 MMOL/L (3.5-5.1); SODIUM 141 MMOL/L (135-145); TOTAL CARBON DIOXIDE 24.2 MMOL/L (24-32); eGFR 4 ML/MIN
[2022-09-12 09:05] LABS: CALCIUM 8.6 MG/DL (8.5-10.1)
[2022-09-12 09:45] LABS: ANISOCYTOSIS 2+; PLATELET ESTIMATE NORMAL; TOTAL CELLS COUNTED 100
[2022-09-12 09:46] LABS: ELLIPTOCYTES FEW; POLYCHROMASIA FEW; SCHISTOCYTES FEW
[2022-09-12 09:47] LABS: HYPERSEGMENTED NEUTROPHILS 1+
--- NOTE | 2022-09-12 11:40 | NUR ---
Procedure cancelled by Dr. Quiroga.
== END 2022-09-12 11:40 | disposition home or self-care (01) ==
LOC: SSTAY O 07:39
PROVIDERS: ATTEND Radiology Diagnostic Radiology
DX: T82.868A Thrombosis due to vascular prosthetic devices, implants and grafts, initial encounter (principal); Z53.8 Procedure and treatment not carried out for other reasons; Y83.2 Surgical operation with anastomosis, bypass or graft as the cause of abnormal reaction of the patient, or of later complication, without mention of misadventure at the time of the procedure; Y92.89 Other specified places as the place of occurrence of the external cause
CPT/HCPCS: 36415; 80048; 85025; J7030; 85007

== ENCOUNTER 2024-02-29 09:00 | Inpatient (IN) | payer MEDICARE, MEDICAID ==
[2024-02-29] VITALS (17 sets, daily range): BP systolic 138–178; BP diastolic 30–97; PULSE 55–93; RESP 12–20; TEMP 97–98.6; O2SAT 94–100
[~2024-02-29] VITALS: Ht 185.4 cm; Wt 64.7 kg
[2024-02-29] MEDS ORDERED: magnesium sulf-water 2g/50mL 50 ML IV PRN (09:50)
[2024-02-29] MEDS ORDERED: magnesium sulf-water 4G/100mL 100 ML IV PRN (09:50)
[2024-02-29] MEDS ORDERED: mag hydrox/Alum hydrox/simeth 30ml oral suspension PO PRN (09:50)
[2024-02-29] MEDS ORDERED: potassium Cl 40MEQ/1/2NS 520ml 520 ML IV PRN (09:50)
[2024-02-29] MEDS ORDERED: magnesium hydroxide 30ml (MOM) UD suspension PO PRN (09:50)
[2024-02-29] MEDS ORDERED: potassium Cl 20 mEq SR tablet PO PRN ×2 (09:50)
[2024-02-29] MEDS ORDERED: magnesium Cl slow-release 64mg tablet PO PRN (09:50)
[2024-02-29] MEDS: calcium acetate 667mg (PhosLO) capsule PO SCH (10:35)
[2024-02-29 10:36] LABS: MAGNESIUM 1.8 MG/DL (1.5-2.4)
[2024-02-29 10:37] LABS: POTASSIUM 6.1 MMOL/L (3.5-5.1)
[2024-02-29] MEDS: sodium polystyrene sulfonate 15gm/60ml oral suspension PO ONE (11:39)
[2024-02-29] MEDS: albuterol 2.5 MG/3 ML nebule NEB ONE (11:40)
[2024-02-29] MEDS ORDERED: NIFE90TA70 PO (13:46)
[2024-02-29] MEDS ORDERED: normal saline 1000ml 100 ML IV PRN (14:25)
[2024-02-29 15:04] LABS: BASOPHILS # (AUTO) 0.2 X10'3 (0-0.2); BASOPHILS % (AUTO) 1.1 % (0-1); EOSINOPHILS % (AUTO) 6.3 % (0-6); LYMPHOCYTES # (AUTO) 1.2 X10'3 (1.1-4.8); LYMPHOCYTES % (AUTO) 7.6 % (21-51); MEAN CORPUSCULAR HEMOGLOBIN 29.4 PG (27.0-31.0); MEAN CORPUSCULAR HGB CONC 32.2 g/dL (33.0-36.5); MEAN CORPUSCULAR VOLUME 91.3 FL (78-98); MEAN PLATELET VOLUME 7.9 FL (7.4-10.4); MONOCYTES # (AUTO) 0.9 X10'3 (0-0.9); MONOCYTES % (AUTO) 5.9 % (2-12); NEUTROPHILS # (AUTO) 12.5 X10'3 (1.8-7.7); NEUTROPHILS % (AUTO) 79.1 % (42-75); PLATELET COUNT 159 X10'3 (140-440); RED BLOOD COUNT 1.96 X10'6 (4.70-6.10); RED CELL DISTRIBUTION WIDTH 20.1 % (11.5-14.5); WHITE BLOOD COUNT 15.8 X10'3 (4.5-11.0)
[2024-02-29 15:12] LABS: HEMOGLOBIN 5.8 g/dl (14.0-17.9)
[2024-02-29 15:13] LABS: HEMATOCRIT 17.9 % (42.0-52.0)
[2024-02-29 15:18] LABS: APTT 25 SECONDS (22-32); PROTHROMBIN TIME 10.9 SECONDS (9.0-12.0)
[2024-02-29 15:20] LABS: ALANINE AMINOTRANSFERASE 14 U/L (12-78); ALBUMIN 3.3 G/DL (3.4-5.0); ALBUMIN/GLOBULIN RATIO 1.1 (1.1-1.5); ALKALINE PHOSPHATASE 111 IU/L (46-116); ANION GAP 14 (8-16); ASPARTATE AMINO TRANSFERASE 12 U/L (10-37); BILIRUBIN,TOTAL 0.5 MG/DL (0.1-1.0); BLOOD UREA NITROGEN 67 MG/DL (7-18); BUN/CREATININE RATIO 5.6 (10.0-20.0); CALCIUM 7.2 MG/DL (8.5-10.1); CHLORIDE 99 MMOL/L (99-107); CREATININE 12.05 MG/DL (0.60-1.10); GLUCOSE 116 MG/DL (70-104); PHOSPHORUS 2.6 MG/DL (2.3-4.5); POTASSIUM 5.3 MMOL/L (3.5-5.1); SODIUM 139 MMOL/L (135-145); TOTAL CARBON DIOXIDE 26.5 MMOL/L (24-32); TOTAL PROTEIN 6.2 G/DL (6.4-8.2); eCRCL 6 ML/MIN; eGFR 4 ML/MIN
[2024-02-29 15:35] LABS: ANISOCYTOSIS 3+; ELLIPTOCYTES FEW; PLATELET ESTIMATE NORMAL; POIKILOCYTOSIS FEW
[2024-02-29] MEDS: VANCOMYCIN 1GM 200ML H20 (PEG) 200 ML IV ONE (16:05)
[2024-02-29] MEDS ORDERED: VANCOMYCIN 1GM 200ML H20 (PEG) 200 ML IV PRN (16:10)
[2024-02-29] MEDS: morphine 2 MG/ML inj. syringe IV PRN (16:36)
[2024-02-29] MEDS ORDERED: DEXTROSE 15 GM of carb/4 tabs (each vial/BOTTLE has 4 tablets) PO PRN ×2 (17:55)
[2024-02-29] MEDS ORDERED: dextrose 50%-water 50ml dispensing syringe IV PRN ×2 (17:55)
[2024-02-29] MEDS ORDERED: glucagon, human recombinant 1mg kit SUBCUT PRN (17:55)
[2024-02-29] MEDS: hydrALAZINE 20mg/ml inj. IV ONE (18:05)
[2024-02-29] MEDS: mannitol 12.5gm/50mL VIAL IV ONE (19:24)
[2024-02-29] MEDS: EPOETIN ALFA-EPBX 20,000 UNIT/ML 1 ML MDV IV ONE (19:24)
[2024-02-29] MEDS: docusate sod 100mg capsule PO SCH (20:00)
[2024-02-29] MEDS: K and/or MAG REPLACEMENT MC SCH (20:00)
[2024-02-29] MEDS: heparin 1,000 units/ml 10ml inj HE ONE ×2 (20:26→20:27)
[2024-02-29] MEDS ORDERED: INSULIN LISPRO 100 UNIT/ML INSULN.PEN MULTI-DOSE SQ SCH (21:00)
[2024-02-29] MEDS: NIFEdipine XL 30mg tablet PO SCH (22:14)
[2024-02-29] MEDS: pantoprazole 40 MG vial IV SCH (22:15)
[2024-02-29] MEDS: folic acid 1mg tablet PO SCH (22:15)
[2024-02-29] MEDS: cefepime 1GM/NS ADD-VANTAGE 100 ML IV ONE (22:16)
[2024-02-29] MEDS: cloNIDine 0.1 mg tablet PO SCH (22:16)
[2024-03-01] VITALS (8 sets, daily range): BP systolic 114–191; BP diastolic 52–87; PULSE 62–74; RESP 16–18; TEMP 97.6–98.9; O2SAT 94–100
[2024-03-01] MEDS: VANCOMYCIN LEVEL IV SCH (03:00)
[2024-03-01 06:49] LABS: BASOPHILS # (AUTO) 0.2 X10'3 (0-0.2); EOSINOPHILS # (AUTO) 1.2 X10'3 (0-0.9); EOSINOPHILS % (AUTO) 7.7 % (0-6); HEMATOCRIT 29.4 % (42.0-52.0); HEMOGLOBIN 9.7 g/dl (14.0-17.9); LYMPHOCYTES # (AUTO) 0.9 X10'3 (1.1-4.8); LYMPHOCYTES % (AUTO) 6.2 % (21-51); MEAN CORPUSCULAR HEMOGLOBIN 29.4 PG (27.0-31.0); MEAN PLATELET VOLUME 8.2 FL (7.4-10.4); MONOCYTES # (AUTO) 1.1 X10'3 (0-0.9); MONOCYTES % (AUTO) 7.3 % (2-12); NEUTROPHILS # (AUTO) 11.8 X10'3 (1.8-7.7); NEUTROPHILS % (AUTO) 77.8 % (42-75); PLATELET COUNT 176 X10'3 (140-440); RED CELL DISTRIBUTION WIDTH 17.3 % (11.5-14.5); WHITE BLOOD COUNT 15.1 X10'3 (4.5-11.0)
[2024-03-01 07:03] LABS: ALANINE AMINOTRANSFERASE 16 U/L (12-78); ALBUMIN 3.7 G/DL (3.4-5.0); ALKALINE PHOSPHATASE 129 IU/L (46-116); ANION GAP 13 (8-16); ASPARTATE AMINO TRANSFERASE 22 U/L (10-37); BILIRUBIN,TOTAL 0.7 MG/DL (0.1-1.0); BLOOD UREA NITROGEN 30 MG/DL (7-18); BUN/CREATININE RATIO 4.5 (10.0-20.0); CALCIUM 7.3 MG/DL (8.5-10.1); CHLORIDE 97 MMOL/L (99-107); CHOL/HDL RATIO 1.9 (0.00-4.99); CHOLESTEROL 114 MG/DL (0-200); GLUCOSE 93 MG/DL (70-104); HDL CHOLESTEROL 60 MG/DL (35-60); LDL CHOLESTEROL 41 MG/DL (50-100); MAGNESIUM 1.7 MG/DL (1.5-2.4); POTASSIUM 3.9 MMOL/L (3.5-5.1); SODIUM 138 MMOL/L (135-145); TOTAL CARBON DIOXIDE 28.2 MMOL/L (24-32); TOTAL PROTEIN 7.3 G/DL (6.4-8.2); TRIGLYCERIDES 111 MG/DL (20-135); VANCOMYCIN,RANDOM 18.2 ug/mL (20.0-30.0); eCRCL 12 ML/MIN; eGFR 9 ML/MIN
[2024-03-01] MEDS: atorvastatin 20mg tablet PO SCH (08:00)
[2024-03-01] MEDS: pantoprazole 40mg Tablet.DR PO SCH (08:04)
[2024-03-01] MEDS ORDERED: normal saline 1000ml 100 ML IV PRN (10:05)
[2024-03-01] MEDS: hydrALAZINE 20mg/ml inj. IV PRN (16:12)
[2024-03-01] MEDS: ondansetron/PF 4mg/2ml inj IV PRN (16:28)
[2024-03-02] VITALS (12 sets, daily range): BP systolic 88–176; BP diastolic 33–74; PULSE 59–76; RESP 16–20; TEMP 97.6–98; O2SAT 96–100
[2024-03-02 06:50] LABS: BASOPHILS # (AUTO) 0.2 X10'3 (0-0.2); BASOPHILS % (AUTO) 1.2 % (0-1); EOSINOPHILS # (AUTO) 1.5 X10'3 (0-0.9); EOSINOPHILS % (AUTO) 11.2 % (0-6); HEMATOCRIT 30.5 % (42.0-52.0); HEMOGLOBIN 9.9 g/dl (14.0-17.9); LYMPHOCYTES # (AUTO) 1.1 X10'3 (1.1-4.8); LYMPHOCYTES % (AUTO) 7.7 % (21-51); MEAN CORPUSCULAR HEMOGLOBIN 29.1 PG (27.0-31.0); MEAN CORPUSCULAR HGB CONC 32.7 g/dL (33.0-36.5); MEAN CORPUSCULAR VOLUME 89.1 FL (78-98); MEAN PLATELET VOLUME 8.2 FL (7.4-10.4); MONOCYTES # (AUTO) 1.4 X10'3 (0-0.9); MONOCYTES % (AUTO) 9.8 % (2-12); NEUTROPHILS # (AUTO) 9.7 X10'3 (1.8-7.7); NEUTROPHILS % (AUTO) 70.1 % (42-75); PLATELET COUNT 192 X10'3 (140-440); RED BLOOD COUNT 3.42 X10'6 (4.70-6.10); RED CELL DISTRIBUTION WIDTH 17.7 % (11.5-14.5); WHITE BLOOD COUNT 13.8 X10'3 (4.5-11.0)
[2024-03-02 06:58] LABS: ALANINE AMINOTRANSFERASE 13 U/L (12-78); ALBUMIN 3.6 G/DL (3.4-5.0); ALKALINE PHOSPHATASE 121 IU/L (46-116); ANION GAP 16 (8-16); ASPARTATE AMINO TRANSFERASE 17 U/L (10-37); BILIRUBIN,TOTAL 0.5 MG/DL (0.1-1.0); BLOOD UREA NITROGEN 40 MG/DL (7-18); BUN/CREATININE RATIO 4.7 (10.0-20.0); CALCIUM 6.2 MG/DL (8.5-10.1); CHLORIDE 96 MMOL/L (99-107); CREATININE 8.59 MG/DL (0.60-1.10); GLUCOSE 97 MG/DL (70-104); MAGNESIUM 1.7 MG/DL (1.5-2.4); POTASSIUM 3.8 MMOL/L (3.5-5.1); SODIUM 137 MMOL/L (135-145); TOTAL CARBON DIOXIDE 25.2 MMOL/L (24-32); TOTAL PROTEIN 7.3 G/DL (6.4-8.2); VANCOMYCIN,RANDOM 14.4 ug/mL (20.0-30.0); eCRCL 9 ML/MIN; eGFR 6 ML/MIN
[2024-03-02] MEDS: EPOETIN ALFA-EPBX 20,000 UNIT/ML 1 ML MDV IV ONE ×2 (09:00→11:56)
[2024-03-02] MEDS: heparin 1,000 units/ml 10ml inj HE ONE ×3 (09:05→11:57)
[2024-03-02] MEDS ORDERED: VANCOMYCIN 1GM 200ML H20 (PEG) 200 ML IV PRN (10:05)
[2024-03-02] MEDS: VANCOMYCIN 1GM 200ML H20 (PEG) 200 ML IV ONE (15:16)
[2024-03-02] MEDS: metoclopramide 5 mg/ml inj IV ONE (22:17)
[2024-03-03] VITALS (7 sets, daily range): BP systolic 102–175; BP diastolic 34–62; PULSE 61–87; RESP 16–18; TEMP 96.7–98; O2SAT 98–100
[2024-03-03] MEDS: acetaminophen 325mg tablet PO PRN (03:29)
[2024-03-03 04:33] LABS: BASOPHILS # (AUTO) 0.2 X10'3 (0-0.2); BASOPHILS % (AUTO) 1.3 % (0-1); EOSINOPHILS # (AUTO) 1.9 X10'3 (0-0.9); EOSINOPHILS % (AUTO) 14.3 % (0-6); HEMATOCRIT 32.1 % (42.0-52.0); HEMOGLOBIN 10.5 g/dl (14.0-17.9); LYMPHOCYTES # (AUTO) 1.3 X10'3 (1.1-4.8); LYMPHOCYTES % (AUTO) 9.2 % (21-51); MEAN CORPUSCULAR HEMOGLOBIN 29.2 PG (27.0-31.0); MEAN CORPUSCULAR HGB CONC 32.6 g/dL (33.0-36.5); MEAN CORPUSCULAR VOLUME 89.4 FL (78-98); MEAN PLATELET VOLUME 8.2 FL (7.4-10.4); MONOCYTES # (AUTO) 1.4 X10'3 (0-0.9); MONOCYTES % (AUTO) 10.3 % (2-12); NEUTROPHILS # (AUTO) 8.9 X10'3 (1.8-7.7); NEUTROPHILS % (AUTO) 64.9 % (42-75); PLATELET COUNT 227 X10'3 (140-440); RED BLOOD COUNT 3.58 X10'6 (4.70-6.10); RED CELL DISTRIBUTION WIDTH 17.8 % (11.5-14.5); WHITE BLOOD COUNT 13.6 X10'3 (4.5-11.0)
[2024-03-03 04:37] LABS: ALANINE AMINOTRANSFERASE 18 U/L (12-78); ALBUMIN 3.8 G/DL (3.4-5.0); ALKALINE PHOSPHATASE 129 IU/L (46-116); ANION GAP 13 (8-16); ASPARTATE AMINO TRANSFERASE 13 U/L (10-37); BILIRUBIN,TOTAL 0.6 MG/DL (0.1-1.0); BLOOD UREA NITROGEN 33 MG/DL (7-18); BUN/CREATININE RATIO 4.6 (10.0-20.0); CALCIUM 7.1 MG/DL (8.5-10.1); CHLORIDE 100 MMOL/L (99-107); CREATININE 7.12 MG/DL (0.60-1.10); GLUCOSE 105 MG/DL (70-104); MAGNESIUM 1.8 MG/DL (1.5-2.4); POTASSIUM 4.2 MMOL/L (3.5-5.1); SODIUM 139 MMOL/L (135-145); TOTAL CARBON DIOXIDE 26.1 MMOL/L (24-32); TOTAL PROTEIN 7.8 G/DL (6.4-8.2); VANCOMYCIN,RANDOM 11.7 ug/mL (20.0-30.0); eCRCL 11 ML/MIN; eGFR 8 ML/MIN
[2024-03-03] MEDS: VANCOMYCIN 1GM 200ML H20 (PEG) 200 ML IV ONE (09:06)
[2024-03-03 11:17] LABS: HBSAG SCREEN Negative (Negative)
[2024-03-03] MEDS ORDERED: midazolam 1 mg/ML 2ml injection ONE (17:03)
[2024-03-03] MEDS ORDERED: fentaNYL/PF 50MCG/1 ML 2ML syringe ONE (17:04)
[2024-03-03] MEDS ORDERED: heparin 1,000unit/ml 10ml vial 10 ML ONE (17:04)
[2024-03-04] VITALS (10 sets, daily range): BP systolic 123–159; BP diastolic 42–67; PULSE 66–75; RESP 16–18; TEMP 97.7–98; O2SAT 98–100
[2024-03-04] MEDS: HYDROcodone/acetaminophen 5mg/325mg tablet PO ONE (03:09)
[2024-03-04] MEDS ORDERED: albumin (human) 25% 100ml IV 100 ML IV PRN (06:30)
[2024-03-04 07:13] LABS: BASOPHILS # (AUTO) 0.1 X10'3 (0-0.2); BASOPHILS % (AUTO) 0.8 % (0-1); EOSINOPHILS # (AUTO) 2.2 X10'3 (0-0.9); EOSINOPHILS % (AUTO) 13.4 % (0-6); HEMATOCRIT 32.8 % (42.0-52.0); HEMOGLOBIN 10.4 g/dl (14.0-17.9); LYMPHOCYTES # (AUTO) 1.1 X10'3 (1.1-4.8); LYMPHOCYTES % (AUTO) 6.6 % (21-51); MEAN CORPUSCULAR HEMOGLOBIN 28.8 PG (27.0-31.0); MEAN CORPUSCULAR HGB CONC 31.7 g/dL (33.0-36.5); MEAN PLATELET VOLUME 8.7 FL (7.4-10.4); MONOCYTES # (AUTO) 1.7 X10'3 (0-0.9); MONOCYTES % (AUTO) 9.9 % (2-12); NEUTROPHILS # (AUTO) 11.6 X10'3 (1.8-7.7); NEUTROPHILS % (AUTO) 69.3 % (42-75); PLATELET COUNT 273 X10'3 (140-440); RED BLOOD COUNT 3.61 X10'6 (4.70-6.10); RED CELL DISTRIBUTION WIDTH 18.1 % (11.5-14.5); WHITE BLOOD COUNT 16.7 X10'3 (4.5-11.0)
[2024-03-04 07:28] LABS: ALANINE AMINOTRANSFERASE 18 U/L (12-78); ALBUMIN 3.8 G/DL (3.4-5.0); ALKALINE PHOSPHATASE 126 IU/L (46-116); ANION GAP 21 (8-16); ASPARTATE AMINO TRANSFERASE 14 U/L (10-37); BILIRUBIN,TOTAL 0.7 MG/DL (0.1-1.0); BLOOD UREA NITROGEN 60 MG/DL (7-18); BUN/CREATININE RATIO 6.6 (10.0-20.0); CALCIUM 6.8 MG/DL (8.5-10.1); CHLORIDE 99 MMOL/L (99-107); CREATININE 9.14 MG/DL (0.60-1.10); GLUCOSE 78 MG/DL (70-104); SODIUM 139 MMOL/L (135-145); TOTAL CARBON DIOXIDE 18.6 MMOL/L (24-32); TOTAL PROTEIN 7.6 G/DL (6.4-8.2); VANCOMYCIN,RANDOM 28.3 ug/mL (20.0-30.0); eCRCL 8 ML/MIN; eGFR 6 ML/MIN
[2024-03-04] MEDS: EPOETIN ALFA-EPBX 20,000 UNIT/ML 1 ML MDV IV ONE (12:07)
[2024-03-04] MEDS: heparin 1,000 units/ml 10ml inj HE ONE ×2 (12:09→12:10)
[2024-03-04] MEDS: heparin 1,000 units/ml 10ml inj IV ONE (12:11)
[2024-03-04] MEDS: heparin 1,000unit/ml 10ml vial 10 ML IV ONE (12:14)
== END 2024-03-04 16:17 | disposition home or self-care (01) | DRG 314 ==
LOC: ER 09:01 → ED HOLD 09:55 → ORTHO 4S 16:15
PROVIDERS: ADMIT Family Medicine; ATTEND Family Medicine
PROC: 5A1D70Z Performance of Urinary Filtration, Intermittent, Less than 6 Hours Per Day (ICD-10-PCS; principal; 2024-02-29)
PROC: 02HV33Z Insertion of Infusion Device into Superior Vena Cava, Percutaneous Approach (ICD-10-PCS; 2024-02-29)
PROC: B548ZZA Ultrasonography of Superior Vena Cava, Guidance (ICD-10-PCS; 2024-02-29)
PROC: 30233N1 Transfusion of Nonautologous Red Blood Cells into Peripheral Vein, Percutaneous Approach (ICD-10-PCS; 2024-02-29)
PROC: 5A1D70Z Performance of Urinary Filtration, Intermittent, Less than 6 Hours Per Day (ICD-10-PCS; 2024-03-02)
PROC: 0JH63XZ Insertion of Tunneled Vascular Access Device into Chest Subcutaneous Tissue and Fascia, Percutaneous Approach (ICD-10-PCS; 2024-03-03)
PROC: 02H633Z Insertion of Infusion Device into Right Atrium, Percutaneous Approach (ICD-10-PCS; 2024-03-03)
PROC: B548ZZA Ultrasonography of Superior Vena Cava, Guidance (ICD-10-PCS; 2024-03-03)
PROC: B5181ZA Fluoroscopy of Superior Vena Cava using Low Osmolar Contrast, Guidance (ICD-10-PCS; 2024-03-03)
PROC: 5A1D70Z Performance of Urinary Filtration, Intermittent, Less than 6 Hours Per Day (ICD-10-PCS; 2024-03-04)
DX: T82.868A Thrombosis due to vascular prosthetic devices, implants and grafts, initial encounter (principal); N18.6 End stage renal disease; I82.C11 Acute embolism and thrombosis of right internal jugular vein; I13.2 Hypertensive heart and chronic kidney disease with heart failure and with stage 5 chronic kidney disease, or end stage renal disease; I82.611 Acute embolism and thrombosis of superficial veins of right upper extremity; E78.5 Hyperlipidemia, unspecified; D64.9 Anemia, unspecified; E87.5 Hyperkalemia; K21.9 Gastro-esophageal reflux disease without esophagitis; Y83.8 Other surgical procedures as the cause of abnormal reaction of the patient, or of later complication, without mention of misadventure at the time of the procedure; I50.9 Heart failure, unspecified; J44.9 Chronic obstructive pulmonary disease, unspecified; Z99.2 Dependence on renal dialysis; Z82.49 Family history of ischemic heart disease and other diseases of the circulatory system; Y92.89 Other specified places as the place of occurrence of the external cause
CPT/HCPCS: 36415; 36430; 36558; 71045; 76937; 77001; 80053; 80061; 80202; 83605; 83735; 84100; 84132; 84145; 85008; 85025; 85610; 85730; 86885; 86900; 86901; 86920; 87040; 87081; 87340; 93005; 93970; 93971; 94640; 94760; 97116; 97161; 97530; 99152; 99153; 99285; A6253; A6258; A6402; A6449; A9270; C1750; C1769; C1894; E1594; G0257; G0378; J0360; J0692; J1644; J1815; J2150; J2250; J2270; J2405; J2470; J3010; J3370; J7030; J7040; P9016; Q4081